=== PATIENT | female | born 1965 | race Caucasian/White ===

== ENCOUNTER → 2016-05-23 | Outpatient (CLI) | payer MEDICAID ==
[~2016-05-23] MED LIST: ATORVASTATIN CA10 M1 PO; BACTRIM DS 8001 TAB PO; BACTROBAN2% TP; BUPROPION HYDR150 M1 PO; CITALOPRAM40 M1 PO; CLARITIN 10MG T10 MG PO; DEXAMETHASONE4 MG PO; DIAZEPAM5 M1 PO; FLEXERIL10 MG PO; HUMALOG MIX 75/10 ML SC; HUMALOG PEN100 U/ML SC; IPRATROPIUM BROM3 M1 IH; KEFLEX500 M1 PO; LEVOTHYROXIN0.025 M1 PO; LORTAB 5/500 501 TAB PO; MAG-OX 400MG T400 MG PO; MECLIZINE 25MG25 MG PO; MEDROL 4MG. DOSE4 MG PO; MELOXICAM7.5 MG PO; METFORMIN ER500 M1 PO; METFORMIN HYD1000 MG PO; NOMEDS *; NOMEDS XX; NOVOLIN 70/30 710 ML SC; OMEPRAZOLE20 MG PO; ROBAXIN 500 MG500 MG PO; TRAMADOL 50MG T50 MG PO; ULTRAM 50 MG TA50 MG PO; VENTOLIN H0.09 MG/AC IH; VITAMIN B COMPL1 CAP PO; VITAMIN D31000 IU PO; ZITHROMAX Z PA250 MG PO; ZOFRAN ODT8 M1 PO; [UNRECOGNIZED DRUG - OTHER] SC
--- NOTE | 2016-05-24 10:03 | RADIOLOGY REPORT PS360 ---
CT ABD PELVIS W/ CONTRAST CLINICAL INDICATION: Follow-up liver lesion, abdominal pain ABDOMINAL PAIN ORDERING PHYSICIAN: BRETT MARTIN MD PATIENT AGE: 50 years COMPARISON: 05/07/2016 TECHNIQUE: Axial images obtained with sagittal and coronal reformats.. 30 seconds, 60 seconds, and 10 minute delayed images are obtained. PROCEDURE: Oral Contrast: Redicat IV Contrast: 75 mL [id number]. FINDINGS: There is a well-circumscribed 3.6 x 2.5 x 2 cm oval isodense lesion of the hepatic dome at the lateral segment of the left hepatic lobe. This is similar when compared to the previous exam. This does not demonstrate characteristics that would be expected for a hemangioma.. No other liver lesions are evident. This could be related to a cyst. A solid lesion is also considered. Dedicated ultrasound of this area may be of further value to determine if this is cystic or solid. This is directly inferior to the heart and not readily amenable to percutaneous biopsy There has been a prior cholecystectomy. Spleen, adrenal glands, pancreas, and kidneys have an unremarkable appearance. The inflammatory process lateral to the mid ascending colon has shown some improvement. This stranding of the fat has improved. There does however remain some persistent nodularity lateral to the ascending colon measuring 3.3 x 1.8 cm. This is not significantly changed. This does not have the appearance of an abscess and could be related to a lymph node or some postinflammatory fibrotic changes. 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 Unremarkable appendix. No evidence of diverticulitis. IMPRESSION: 1. No change isodense hepatic lesion. This does not have the appearance of a hemangioma or lipoma. Suggest ultrasound to determine cystic or solid nature. 2. Improvement in the inflammatory process in the right lower quadrant. There remains some residual soft tissue density in this area which could be related to a lymph node or postinflammatory fibrotic changes. Suggest 3 month follow-up to confirm stability or resolution of this nodular density and of the hepatic lesion.
== END ==
LOC: RAD 08:56
DX: R10.9 Unspecified abdominal pain (principal)
CPT/HCPCS: Q9967

== ENCOUNTER → 2016-06-06 | Outpatient (CLI) | payer MEDICAID ==
--- NOTE | 2016-06-06 12:56 | RADIOLOGY REPORT PS360 ---
US RUQ-(ABD LTD)1ORGAN/QUAD/FU HISTORY: Follow-up liver lesion, abdominal pain, follow-up abnormal CT LIVER LESION ORDERING PHYSICIAN: BRETT MARTIN MD PATIENT AGE: 50 years COMPARISON: CT scan of 05/23/2016 FINDINGS: There is a 2.8 x 3.6 cm rounded isoechoic lesion in the hepatic dome of the lateral segment of the left lobe of the liver which corresponds to the CT abnormality. This contains internal echoes and is not consistent with a cyst. No other lesions are evident. There is enhanced through transmission of sound posterior to the lesion. There is been a prior cholecystectomy. IMPRESSION: 2.8 x 3.6 cm lesion of the superior aspect of the left hepatic lobe lateral segment does not represent a simple cyst sonographically. There is however enhanced through transmission of sound. There is heterogeneous echogenicity of the lesion. A solid lesion such as neoplasm or hepatic adenoma is considered. Complex cystic lesion also a consideration. 3 month sonographic follow-up recommended to determine short-term stability..
== END ==
LOC: RAD 07:56
DX: K52.9 Noninfective gastroenteritis and colitis, unspecified (principal)

== ENCOUNTER 2016-10-05 10:15 | Outpatient (CLI) | payer MEDICAID ==
[2016-10-05 12:36] LABS: HEMOGLOBIN 12.8 g/dL (12.2-16.2); LYMPH # 2.4 K/mm3 (0.7-4.5); LYMPH % 40.8 % (10-50.0)
[2016-10-05 12:46] LABS: BUN 17 mg/dL (7-18)
[2016-10-05 12:47] LABS: GFR (ESTIMATED) 59 ML/MIN (59-)
== END 2016-10-05 11:00 | disposition hospice, home (50) ==
LOC: COP 10:15
PROVIDERS: Obstetrics & Gynecology Gynecologic Oncology
DX: C55 Malignant neoplasm of uterus, part unspecified (principal); Z45.2 Encounter for adjustment and management of vascular access device; Z48.00 Encounter for change or removal of nonsurgical wound dressing
CPT/HCPCS: J1642

== ENCOUNTER 2016-10-31 12:00 | Outpatient (CLI) | payer MEDICAID ==
[2016-10-31 13:47] LABS: BUN 11 mg/dL (7-18); GFR (ESTIMATED) 66 ML/MIN (59-)
[2016-10-31 13:48] LABS: LYMPH # 2.1 K/mm3 (0.7-4.5); LYMPH % 30.4 % (10-50.0)
[2016-10-31 13:50] LABS: HEMOGLOBIN 11.7 g/dL (12.2-16.2)
== END 2016-10-31 12:30 | disposition home or self-care (01) ==
LOC: COP 12:00
PROVIDERS: Obstetrics & Gynecology Gynecologic Oncology
DX: Z45.2 Encounter for adjustment and management of vascular access device (principal); Z48.00 Encounter for change or removal of nonsurgical wound dressing
CPT/HCPCS: G0463

== ENCOUNTER 2016-11-08 12:29 | Outpatient (CLI) | payer MEDICAID ==
[2016-11-08 13:38] LABS: LYMPH # 2.2 K/mm3 (0.7-4.5); LYMPH % 28.6 % (10-50.0)
[2016-11-08 13:56] LABS: HEMOGLOBIN 13.3 g/dL (12.2-16.2)
[2016-11-08 14:02] LABS: BUN 11 mg/dL (7-18)
[2016-11-08 14:04] LABS: GFR (ESTIMATED) 59 ML/MIN (59-)
== END 2016-11-08 13:40 | disposition home or self-care (01) ==
LOC: COP 12:29
PROVIDERS: Obstetrics & Gynecology Gynecologic Oncology
DX: C55 Malignant neoplasm of uterus, part unspecified (principal); Z45.2 Encounter for adjustment and management of vascular access device; Z48.00 Encounter for change or removal of nonsurgical wound dressing
CPT/HCPCS: J1642

== ENCOUNTER 2016-11-15 13:25 | Outpatient (CLI) | payer MEDICAID ==
[2016-11-15 13:43] LABS: LYMPH # 2.4 K/mm3 (0.7-4.5); LYMPH % 38.9 % (10-50.0)
[2016-11-15 13:56] LABS: BUN 12 mg/dL (7-18)
[2016-11-15 14:03] LABS: GFR (ESTIMATED) 76 ML/MIN (59-)
== END 2016-11-15 13:45 | disposition home or self-care (01) ==
LOC: COP 13:25
PROVIDERS: Obstetrics & Gynecology Gynecologic Oncology
DX: Z45.2 Encounter for adjustment and management of vascular access device (principal)

== ENCOUNTER → 2016-11-22 | Outpatient (CLI) | payer MEDICAID ==
[2016-11-22 14:43] LABS: LYMPH # 2.9 K/mm3 (0.7-4.5); LYMPH % 48.5 % (10-50.0)
[2016-11-22 14:53] LABS: BUN 14 mg/dL (7-18); GFR (ESTIMATED) 66 ML/MIN (59-)
== END ==
LOC: COP 13:00
PROVIDERS: Obstetrics & Gynecology Gynecologic Oncology
DX: Z45.2 Encounter for adjustment and management of vascular access device (principal)
CPT/HCPCS: J1642

== ENCOUNTER 2016-11-30 08:35 | Outpatient (CLI) | payer MEDICAID ==
[2016-11-30 09:24] LABS: HEMOGLOBIN 12.9 g/dL (12.2-16.2); LYMPH # 2.1 K/mm3 (0.7-4.5); LYMPH % 40.6 % (10-50.0)
[2016-11-30 09:39] LABS: BUN 11 mg/dL (7-18)
[2016-11-30 09:41] LABS: GFR (ESTIMATED) 76 ML/MIN (59-)
== END 2016-11-30 09:15 | disposition home or self-care (01) ==
LOC: COP 08:35
PROVIDERS: Obstetrics & Gynecology Gynecologic Oncology
DX: Z45.2 Encounter for adjustment and management of vascular access device (principal)
CPT/HCPCS: J1642

== ENCOUNTER 2017-01-02 12:47 | Outpatient (CLI) | payer MEDICAID ==
[2017-01-02 13:30] LABS: HEMOGLOBIN 13.2 g/dL (12.2-16.2); LYMPH # 2.1 K/mm3 (0.7-4.5); LYMPH % 36.8 % (10-50.0)
[2017-01-02 13:31] LABS: BUN 11 mg/dL (7-18); GFR (ESTIMATED) 58 ML/MIN (59-)
== END 2017-01-02 13:30 | disposition home or self-care (01) ==
LOC: COP 12:47
PROVIDERS: Obstetrics & Gynecology Gynecologic Oncology
DX: Z45.2 Encounter for adjustment and management of vascular access device (principal)
CPT/HCPCS: J1642

== ENCOUNTER 2017-01-09 13:00 | Outpatient (CLI) | payer MEDICAID | END 2017-01-09 13:30 | disposition home or self-care (01) | LOC: COP 13:00 | DX: Z45.2 Encounter for adjustment and management of vascular access device (principal) | CPT/HCPCS: J1642 ==